=== PATIENT | female | born 1965 | race Caucasian/White ===

== ENCOUNTER → 2016-07-04 11:35 | Emergency (ER) | payer MEDICARE, OTHER | END | disposition left against medical advice (07) | LOC: ER 11:35 | DX: Z53.21 Procedure and treatment not carried out due to patient leaving prior to being seen by health care provider (principal) ==

== ENCOUNTER 2016-07-17 11:01 | Emergency (ER) | payer MEDICARE, OTHER | END 2016-07-17 11:05 | disposition left against medical advice (07) | LOC: ER 11:01 | DX: Z53.21 Procedure and treatment not carried out due to patient leaving prior to being seen by health care provider (principal) ==

== ENCOUNTER 2016-08-07 07:58 | Emergency (ER) | payer MEDICARE, OTHER | END 2016-08-07 08:28 | disposition home or self-care (01) | LOC: ER 07:58 | DX: L02.11 Cutaneous abscess of neck (principal); J44.9 Chronic obstructive pulmonary disease, unspecified; I10 Essential (primary) hypertension; F17.210 Nicotine dependence, cigarettes, uncomplicated; Z79.899 Other long term (current) drug therapy; Z88.5 Allergy status to narcotic agent; Z88.1 Allergy status to other antibiotic agents ==

== ENCOUNTER 2016-10-21 20:45 | Emergency (ER) | payer MEDICARE, OTHER | END 2016-10-21 21:40 | disposition home or self-care (01) | LOC: ER 20:45 | DX: R21 Rash and other nonspecific skin eruption (principal); M72.2 Plantar fascial fibromatosis; Z79.899 Other long term (current) drug therapy; Z88.2 Allergy status to sulfonamides; Z88.5 Allergy status to narcotic agent ==